=== PATIENT | female | born 1985 | race Caucasian/White ===

== ENCOUNTER 2025-02-22 13:10 | Emergency (ER) | payer SELFPAY ==
[~2025-02-22] VITALS: Ht 167.6 cm; Wt 68.2 kg
--- NOTE | 2025-02-22 13:32 | ERN ---
General Chief Complaint: Other Problems Stated Complaint: OTHER Time Seen by MD: 13:18 History of Present Illness Initial Comments 39-year-old female with a extensive psychological history including PTSD, anxiety, depression, bipolar disorder here for anxiety. Patient states he has been where it has been worsening anxiety and lack of sleep for the past 48-72 hours. She states that she has been out of her medications and has been to [facility] where she gets her regular psychiatric care by Dr. Rivero. She is asking for antianxiety medications right now and promises that she will go see [facility] tomorrow morning. Denies any SI/HI. Denies any visual or auditory hallucination Allergies: Coded Allergies: No Known Drug Allergies (Unverified Allergy, Unknown, 02/22/25) Past Medical History Past Medical History: Anxiety, Bipolar, Depression Past Surgical History: None Female( History) LMP: Jan 16, 2025 : 0 Psych: (+) anxiety; (-) depression, (-) suicidal ideation Review of Systems: was completed, & the rest were negative. Physical Exam Physical Exam Dictation GENERAL APPEARANCE NAD, activity normal for age, well developed/ well nourished, no cyanosis, pallor, or diaphoresis. EYES lids/conjunctiva normal. EARS/NOSE/THROAT Mucous membranes moist, nares normal, lips/teeth normal uvula midline without oral pharyngeal erythema, exudate or swelling TMs normal bilaterally. No lymphangitis/lymphedema. HEAD/NECK normocephalic atraumatic, no facial trauma, neck is supple. RESPIRATORY respiratory effort normal, speaks in full sentences, no tripod position, no accessory muscle use. Lungs clear to auscultation without rhonchi, wheezes, rales CARDIAC Regular rate and rhythm, no edema. ABDOMINAL Soft, ND/NT. No evidence of fluid wave. No pulsatile masses on exam, rebound tenderness, Valdivia sign or pain over Mcburney's point. MUSCLES/EXTREMITIES No abnormal range of motion, no swelling. SKIN Warm, pink and dry. No rashes, dermatoses, petechiae or lesions. NEUROLOGICAL Speech is clear and appropriate. Normal level of consciousness. Gait and coordination are normal. 5/5 strength in all extremities. PSYCH stuttering speech. Anxious appearing. Answers questions appropriately. MDM 39-year-old female here for evaluation of acute anxiety. We will give short dose of benzodiazepine here in the emergency room, reassess and discharge her home. Disposition pending clinical improvement ED Course Orders Procedure Category Date Status Time Diazepam 5mg Tab PHA 02/22/25 Complete (Valium 5 Mg Tab) 13:30 Ondansetron 4mg PHA 02/22/25 Complete Tablet (Zofran 4mg 13:30 Current Medications Medications (Trade) Dose Ordered Sig/Dat Route PRN Reason Start Time Stop Time Status Last Admin Dose Admin Diazepam (VALium 5 mg TAB) 5 mg ONCE ONCE PO 02/22/25 13:30 02/22/25 13:32 DC 02/22/25 13:35 Ondansetron HCl (zoFRAN 4MG TABLET) 4 mg ONCE ONCE PO 02/22/25 13:30 02/22/25 13:32 DC 02/22/25 13:35 Vital Signs Date Time Temp Pulse Resp B/P (MAP) Pulse Ox O2 Delivery O2 Flow Rate FiO2 02/22/25 13:26 97.9 70 16 129/76 100 Room Air* 0 21 02/22/25 13:14 97.9 70 16 129/76 100 Room Air 0 DX & DISP Disposition: Discharge Departure Impression: Primary Impression: Acute anxiety Additional Impression: Nausea Condition: Stable Scripts Hydroxyzine HCl (Hydroxyzine HCl) 25 Mg Tablet 1 TAB PO TID for anxiety for 10 Days, #30 TAB 0 Refills Prov: MAIRA LARSEN MD 02/22/25 Ondansetron (Ondansetron Odt) 4 Mg Tab.rapdis 1 TAB PO Q6HPRN PRN for nausea/vomiting for 4 Days, #16 TAB 0 Refills Prov: MAIRA LARSEN MD 02/22/25 MAIRA LARSEN MD Feb 22, 2025 13:32
[2025-02-22] MEDS: diazePAM 5 MG TAB PO ONE (13:35)
[2025-02-22] MEDS ORDERED: HYDR-3421 PO (14:17)
[2025-02-22] MEDS ORDERED: ONDA-243 PO (14:17)
[2025-02-22 14:43] VITALS: BP 122/70; PULSE 72; RESP 16; TEMP 97.9; O2SAT 100
== END 2025-02-22 14:45 | disposition home or self-care (01) ==
LOC: EDH 13:10
DX: F41.9 Anxiety disorder, unspecified (principal); F31.9 Bipolar disorder, unspecified; R11.0 Nausea
CPT/HCPCS: 99283; Q0162